=== PATIENT | female | born 1985 | race Caucasian/White ===

== ENCOUNTER 2016-08-19 09:05 | Emergency (ER) | payer OTHER ==
[~2016-08-19] VITALS: Ht 160 cm; Wt 83.1 kg
[~2016-08-19 09:05] MED LIST: AMOXICILLIN500 MG PO; METHADOSE40 MG PO; MOTRIN800 MG PO; NICOTINE PATCH1 EAC2 TD; OXYCODONE HCL5 MG PO; PERCOCET 5/31 TABLET PO; TYLENOL EXTRA500 MG PO; VITAFOL-OB+DHA1 EACH PO
[2016-08-19 09:58] LABS: MCH 34.8 PG (29.0-34.0); MCV 96.6 FL (83-99); MEAN PLAT.VOLUME 9.6 uM^3 (9.5-12.4); PLATELET COUNT 304 K/uL (156-360); RBC DIS.WIDTH-CV 12.9 % (11.8-14.6); RED BLOOD COUNT 4.97 M/uL (3.80-5.20); WHITE BLOOD COUNT 7.4 K/uL (4.1-10.2)
[2016-08-19] MEDS ORDERED: CYMBALTA60 MG PO (10:07)
[2016-08-19] MEDS ORDERED: GABAPENTIN600 MG PO (10:07)
[2016-08-19] MEDS ORDERED: MOBIC15 MG PO (10:08)
[2016-08-19 10:11] LABS: CHLORIDE 99 mEq/L (99-109); POTASSIUM 3.2 mEq/L (3.7-5.4); SODIUM 138 mEq/L (136-147)
[2016-08-19 10:13] LABS: GLUCOSE 139 mg/dL (70-99)
[2016-08-19 10:15] LABS: ANION GAP 18 MEQ/L (2-14); TOTAL BILIRUBIN 0.4 mg/dL (0.0-1.0)
[2016-08-19 10:17] LABS: ALKALINE PHOSPHATASE 103 IU/L (3-129); GFR ESTIMATE (CALCULATED) > 59 mL/min/
[2016-08-19 10:18] LABS: UREA NITROGEN (BUN) 5 mg/dL (9-23)
[2016-08-19 10:26] LABS: QUANTITATIVE HCG < 4.0 MIU/ML
[2016-08-19 12:16] LABS: ADD MIUA? YES; BILIRUBIN NEGATIVE; BLOOD MODERATE; COLOR YELLOW ((YELLOW)); GLUCOSE (STRIP) NEGATIVE; KETONES NEGATIVE; LEUKOCYTES NEGATIVE; NITRITE NEGATIVE; PROTEIN (STRIP) NEGATIVE; SPECIFIC GRAVITY 1.008 (1.000-1.030); UROBILINOGEN 0.2 MG/DL (0.2-1.0)
[2016-08-19 12:22] LABS: BACTERIA NONE SEEN /HPF; EPITHELIAL CELLS RARE /HPF; MUCUS 1+ /LPF; RED BLOOD CELLS 0-5 /HPF (0-5); UCUL ADDED? NO; WHITE BLOOD CELLS 0-5 /HPF (0-5)
[2016-08-19] MEDS ORDERED: LIBRIUM25 MG PO (14:33)
[2016-08-19 14:48] VITALS: BP 138/91
== END 2016-08-19 14:55 | disposition home or self-care (01) ==
LOC: EME 09:05
DX: F10.239 Alcohol dependence with withdrawal, unspecified (principal); E86.0 Dehydration; R11.2 Nausea with vomiting, unspecified; R19.7 Diarrhea, unspecified; F17.200 Nicotine dependence, unspecified, uncomplicated
CPT/HCPCS: 80053; 81003; 83690; 84702; 85027; 99281; 99285; J2405; J3360; J7030

== ENCOUNTER 2017-02-08 14:55 | Emergency (ER) | payer OTHER ==
[~2017-02-08] VITALS: Ht 160 cm; Wt 95.1 kg
[~2017-02-08 14:55] MED LIST changes: +CYMBALTA60 MG PO; +GABAPENTIN600 MG PO; +LIBRIUM25 MG PO; +MOBIC15 MG PO
[2017-02-08 15:26] LABS: HEMATOCRIT 41.3 % (36.0-46.0); MCH 33.6 PG (29.0-34.0); MCHC 34.9 G/DL (30.0-36.0); MCV 96.5 FL (83-99); MEAN PLAT.VOLUME 9.7 uM^3 (9.5-12.4); PLATELET COUNT 258 K/uL (156-360); RBC DIS.WIDTH-CV 12.3 % (11.8-14.6); RBC DIS.WIDTH-SD 43.5 % (39-53); RED BLOOD COUNT 4.28 M/uL (3.80-5.20); WHITE BLOOD COUNT 12.7 K/uL (4.1-10.2)
[2017-02-08 15:34] LABS: CHLORIDE 106 mEq/L (99-109); POTASSIUM 4.4 mEq/L (3.7-5.4); SODIUM 139 mEq/L (136-147)
[2017-02-08 15:36] LABS: GLUCOSE 208 mg/dL (70-99)
[2017-02-08 15:38] LABS: ANION GAP 8 MEQ/L (2-14); TOTAL BILIRUBIN 0.2 mg/dL (0.0-1.0)
[2017-02-08 15:39] LABS: SERUM ETHYL ALCOHOL < 10 mg/dL
[2017-02-08 15:40] LABS: ALKALINE PHOSPHATASE 79 IU/L (3-129); GFR ESTIMATE (CALCULATED) > 59 mL/min/
[2017-02-08 15:41] LABS: UREA NITROGEN (BUN) 15 mg/dL (9-23)
[2017-02-08 15:49] LABS: QUANTITATIVE HCG < 4.0 MIU/ML
[2017-02-08] MEDS ORDERED: NARCAN4 MG NS (16:28)
[2017-02-08 17:19] LABS: ADD MIUA? YES; BILIRUBIN NEGATIVE; BLOOD NEGATIVE; COLOR YELLOW ((YELLOW)); GLUCOSE (STRIP) 150; KETONES NEGATIVE; LEUKOCYTES NEGATIVE; NITRITE NEGATIVE; PROTEIN (STRIP) 30; SPECIFIC GRAVITY 1.014 (1.000-1.030); UROBILINOGEN 0.2 MG/DL (0.2-1.0)
[2017-02-08 17:42] LABS: EPITHELIAL CELLS 2+ /HPF; RED BLOOD CELLS NONE SEEN /HPF (0-5); WHITE BLOOD CELLS 0-5 /HPF (0-5)
[2017-02-08 17:43] LABS: AMORPHOUS PHOSPHATE CRYSTALS 1+; BACTERIA 2+ /HPF; CASTS NONE SEEN /LPF; CRYSTALS PRESENT; MUCUS 1+ /LPF
[2017-02-08 17:50] VITALS: BP 147/105
[2017-02-08 18:08] LABS: COCAINE NEGATIVE (150 ng/mL); METHAMPHETAMINE NEGATIVE (500 ng/mL); OPIATES (MORPHINE) NEGATIVE (100 ng/mL); PHENCYCLIDINE NEGATIVE (25 ng/mL); THC CANNABINOIDS NEGATIVE (50 ng/mL)
[2017-02-08 18:09] LABS: AMPHETAMINE NEGATIVE (500 ng/mL); BARBITURATES NEGATIVE (200 ng/mL); BENZODIAZEPINES NEGATIVE (150 ng/mL); INTERNAL CONTROLS VALID? YES; METHADONE NEGATIVE (200 ng/mL); OXYCODONE NEGATIVE (100 ng/mL); PROPOXYPHENE NEGATIVE (300 ng/mL); TRICYCLIC ANTIDEPRESSANTS NEGATIVE (300 ng/mL)
== END 2017-02-08 17:50 | disposition home or self-care (01) ==
LOC: EME 14:55
PROVIDERS: Emergency Medicine
DX: T40.1X1A Poisoning by heroin, accidental (unintentional), initial encounter (principal); V99.XXXA Unspecified transport accident, initial encounter; M79.7 Fibromyalgia; F17.200 Nicotine dependence, unspecified, uncomplicated; Z88.8 Allergy status to other drugs, medicaments and biological substances
CPT/HCPCS: 80053; 81003; 84702; 85027; 99281; 99285; G0480; J2310